=== PATIENT | female | born 1945 | race Asian ===

== ENCOUNTER 2017-04-14 13:33 | Emergency (ER) | payer MEDICARE ==
[2017-04-14] VITALS (8 sets, daily range): BP systolic 81–130; BP diastolic 55–72
[~2017-04-14] VITALS: Ht 162.6 cm; Wt 63.5 kg
[2017-04-14] MEDS ORDERED: Adenosine 6mg/2ml Inj ONE (13:37)
[2017-04-14] MEDS ORDERED: Solu-MEDROL 125mg Inj IVP ONE (13:45)
[2017-04-14] MEDS ORDERED: Adenosine 6mg/2ml Inj IVP ONE ×2 (13:45)
[2017-04-14] MEDS ORDERED: Famotidine 20 MG/ 2ML VIAL IVP ONE (13:45)
[2017-04-14 14:05] LABS: EOSINOPHILS % (AUTO) 0.7 % (0.0-3.0); LYMPHOCYTES % (AUTO) 44.9 % (20.0-45.0); MEAN CORPUSCULAR HEMOGLOBIN 31.5 PG (27.0-31.0); MEAN CORPUSCULAR HGB CONC 31.9 G/DL (32.0-36.0); MEAN CORPUSCULAR VOLUME 99 FL (80-99); MEAN PLATELET VOLUME 6.7 FL (6.5-10.1); MONOCYTES % (AUTO) 5.8 % (1.0-10.0); NEUTROPHILS % (AUTO) 47.7 % (45.0-75.0); PLATELET COUNT 315 K/UL (150-450); RED BLOOD COUNT 4.59 M/UL (4.20-5.40); RED CELL DISTRIBUTION WIDTH 12.2 % (11.6-14.8); WHITE BLOOD COUNT 12.2 K/UL (4.8-10.8)
--- NOTE | 2017-04-14 14:09 | Diagnostic Imaging Report ---
Indication: Dyspnea Comparison: None A single view chest radiograph was obtained. Findings: Calcified nodules noted in the right lung base. Cardiomegaly is present. Bones are osteopenic. Impression: No acute disease Old granulomatous disease Cardiomegaly Osteoporosis
[2017-04-14 14:21] LABS: ALANINE AMINOTRANSFERASE 15 U/L (3-33); ALBUMIN/GLOBULIN RATIO 1.7 (1.0-2.7); ANION GAP 16 (5-15); ASPARTATE AMINO TRANSFERASE 20 U/L (5-40); CALCIUM 9.5 mg/dL (8.6-10.2); CARBON DIOXIDE 25 mEQ/L (20-30); CHLORIDE 102 mEQ/L (98-107); CREATININE 0.9 mg/dL (0.5-0.9); GLOMERULAR FILTRATION RATE > 60 mL/min (>60); HEMOLYSIS 7; POTASSIUM 2.8 mEQ/L (3.4-4.9); SODIUM 143 mEQ/L (135-145); TOTAL PROTEIN 6.4 g/dL (6.6-8.7)
[2017-04-14 14:22] LABS: TROPONIN I < 0.30 ng/mL (<=0.30)
[2017-04-14 14:32] LABS: CKMB 3.4 ng/mL (< 3.8)
--- NOTE | 2017-04-14 15:28 | Emergency Room Report ---
History of Present Illness General Chief Complaint: Allergic Reaction Source: Patient Present Illness HPI 72-year-old female presents ED for evaluation. Per EMS patient was stung by a bee today on her hands. Patient sustained a allergic reaction. BP was low. patient had diffuse hives. patient denied SOB. patient was given benedryl, epinephrine. on arrival, BP is improved, but patient is tachycardic. denies chest pain, SOB. Denies fevers or chills. no known food or drug allergies. no other aggravating or relieving factors. denies any other associated symptoms Allergies: Coded Allergies: No Known Allergies (Unverified , 04/14/17) Patient History Past Medical History: none Past Surgical History: none Pertinent Family History: none Social History: Denies: alcohol use, drug use, smoking Now: No Immunizations: UTD Reviewed Nursing Documentation: PMH: Agreed, PSxH: Agreed Nursing Documentation-PMH Past Medical History: No Stated History Review of Systems All Other Systems: negative except mentioned in HPI Physical Exam Vital Signs Date Time Temp Pulse Resp B/P Pulse Ox O2 Delivery O2 Flow Rate FiO2 04/14/17 13:27 115 18 126/71 97 Room Air 04/14/17 13:33 98.0 Sp02 EP Interpretation: reviewed, normal General Appearance: no apparent distress, alert, GCS 15, non-toxic Head: normocephalic, atraumatic Eyes: bilateral eye PERRL, bilateral eye normal inspection ENT: hearing grossly normal, normal pharynx, no angioedema, normal voice Neck: full range of motion, supple/symm/no masses Respiratory: chest non-tender, lungs clear, normal breath sounds, speaking full sentences Cardiovascular #1: no edema, tachycardia Cardiovascular #2: 2+ carotid (R), 2+ carotid (L), 2+ radial (R), 2+ radial (L) , 2+ dorsalis pedis (R), 2+ dorsalis pedis (L) Gastrointestinal: normal bowel sounds, non tender, soft, non-distended, no guarding, no rebound Rectal: deferred Genitourinary: normal inspection, no CVA tenderness Musculoskeletal: back normal, gait/station normal, normal range of motion, non- tender Neurologic: alert, oriented x3, responsive, motor strength/tone normal, sensory intact, speech normal Psychiatric: judgement/insight normal, memory normal, mood/affect normal, no suicidal/homicidal ideation Reflexes: 3+ bicep (R), 3+ bicep (L), 3+ tricep (R), 3+ tricep (L), 3+ knee (R) , 3+ knee (L) Skin: normal color, warm/dry, well hydrated, other - hives Lymphatic: no adenopathy Procedures Critical Care Time Critical Care Time i. I feel this is a highly complex case requiring extensive working including EKG/Rhythm strip, Xray/CT/US, Blood/urine lab work, repeat exams while in ED, and administration of strong opiates/narcotics for pain control, admission to hospital or close patient follow up. Total time: 30 min bedside evaluation and treatment excludes procedures (EKG). Reason for critical care: SVT, anaphylaxis Possible complications: hypotension, hypertension, MT, shock, arrhythmias, metabolic acidosis, end organ damage, respiratory failure. Interventions: Labs, IV fluids, EKG, chest x-ray, pepcid, Solu-Medrol. Adenosine Course: Patient brought in for anaphylaxis after bee sting. Given epi and Benadryl in field. Upon arrival tachycardic to the 180s. EKG shows SVT. Given adenosine 6 mg then 12 mg with conversion. Troponins negative Consultations: nursing staff, EMS, family Performed by: Dr Rodriguez Tolerated well condition = serious j. because of unstable vital signs this patient had a condition that could potentially threaten life or limb. I feel this is a critical patient who required my full attention while patient was considered critical. Total Critical Care Time excluding procedures was greater than 35 minutes Medical Decision Making Diagnostic Impression: Primary Impression: SVT (supraventricular tachycardia) Additional Impressions: Anaphylaxis Qualified Codes: T78.2XXA - Anaphylactic shock, unspecified, initial encounter Allergic reaction Qualified Codes: T78.40XA - Allergy, unspecified, initial encounter Labs Test 04/14/17 13:47 White Blood Count 12.2 K/UL (4.8-10.8) Red Blood Count 4.59 M/UL (4.20-5.40) Hemoglobin 14.5 G/DL (12.0-16.0) Hematocrit 45.4 % (37.0-47.0) Mean Corpuscular Volume 99 FL (80-99) Mean Corpuscular Hemoglobin 31.5 PG (27.0-31.0) Mean Corpuscular Hemoglobin Concent 31.9 G/DL (32.0-36.0) Red Cell Distribution Width 12.2 % (11.6-14.8) Platelet Count 315 K/UL (150-450) Mean Platelet Volume 6.7 FL (6.5-10.1) Neutrophils (%) (Auto) 47.7 % (45.0-75.0) Lymphocytes (%) (Auto) 44.9 % (20.0-45.0) Monocytes (%) (Auto) 5.8 % (1.0-10.0) Eosinophils (%) (Auto) 0.7 % (0.0-3.0) Basophils (%) (Auto) 1.0 % (0.0-2.0) Sodium Level 143 mEQ/L (135-145) Potassium Level 2.8 mEQ/L (3.4-4.9) Chloride Level 102 mEQ/L (98-107) Carbon Dioxide Level 25 mEQ/L (20-30) Anion Gap 16 (5-15) Blood Urea Nitrogen 12 mg/dL (7-23) Creatinine 0.9 mg/dL (0.5-0.9) Estimat Glomerular Filtration Rate > 60 mL/min (>60) Glucose Level 188 mg/dL (74-106) Calcium Level 9.5 mg/dL (8.6-10.2) Total Bilirubin 0.3 mg/dL (0.0-1.2) Aspartate Amino Transf (AST/SGOT) 20 U/L (5-40) Alanine Aminotransferase (ALT/SGPT) 15 U/L (3-33) Alkaline Phosphatase 82 U/L (35-104) Total Creatine Kinase 110 U/L (26-140) Creatine Kinase MB 3.4 ng/mL (< 3.8) Creatine Kinase MB Relative Index 3.0 Troponin I < 0.30 ng/mL (<=0.30) Pro-B-Type Natriuretic Peptide 424 pg/mL (0-125) Total Protein 6.4 g/dL (6.6-8.7) Albumin 4.1 g/dL (3.5-5.2) Globulin 2.3 g/dL Albumin/Globulin Ratio 1.7 (1.0-2.7) EKG Diagnostic Results Rate: tachycardiac Rhythm: other - SVT ST Segments: no acute changes ASA given to the pt in ED: No Rhythm Strip Diag. Results EP Interpretation: yes Rhythm: no PVC's, no ectopy Chest X-Ray Diagnostic Results Chest X-Ray Diagnostic Results : Chest X-Ray Ordered: Yes # of Views/Limited/Complete: 1 View Indication: Shortness of Breath EP Interpretation: Yes Interpretation: no consolidation, no effusion, no pneumothorax, no acute cardiopulmonary disease Impression: No acute disease Interpreting ER Provider: Jan Rodriguez MD Last Vital Signs Date Time Temp Pulse Resp B/P Pulse Ox O2 Delivery O2 Flow Rate FiO2 04/14/17 15:18 98.3 106 20 103/57 98 Room Air Status: improved Disposition: ADMITTED INPATIENT Condition: Serious Referrals: NON PHYSICIAN (PCP) JAN RODRIGUEZ M.D. Apr 14, 2017 15:28
[2017-04-14] MEDS ORDERED: Morphine Sulfate 2mg/ml Inj IVP ONE (15:43)
[2017-04-14] MEDS ORDERED: NKM (16:42)
--- NOTE | 2017-04-19 16:32 | Cardiology Report ---
APPROVED REPORT EKG Measurement Heart [id number] Sinus rhythm with 1st degree AV block Possible Left atrial enlargement Incomplete right bundle branch block Nonspecific T wave abnormality Prolonged QT Abnormal ECG
== END 2017-04-14 19:09 | disposition left against medical advice (07) ==
LOC: EDBD 13:33 → EMR 13:55 → EDBEDREQ 14:42 → UNDOADMIN 17:47 → 2E 17:47
DX: T78.2XXA Anaphylactic shock, unspecified, initial encounter (principal); T63.441A Toxic effect of venom of bees, accidental (unintentional), initial encounter; T78.40XA Allergy, unspecified, initial encounter; I47.1 Supraventricular tachycardia; W57.XXXA Bitten or stung by nonvenomous insect and other nonvenomous arthropods, initial encounter; Y92.9 Unspecified place or not applicable
CPT/HCPCS: 36415; 71010; 80053; 82550; 82553; 83880; 84484; 85025; 93005; 99291; J0153; J2930; S0028; J8499

== ENCOUNTER 2020-03-27 21:09 | Emergency (ER) | payer MEDICARE, OTHER ==
[~2020-03-27] VITALS: Ht 157.5 cm; Wt 63.5 kg
[~2020-03-27 21:09] MED LIST: NKM
[2020-03-27 21:15] VITALS: BP 138/88
[2020-03-27 21:30] VITALS: BP 138/88
--- NOTE | 2020-03-27 21:33 | NUR ---
ED Nurse Note: Pt ambulated to ED from home c/o heart palpitations and weakness since 430pm, denies N/V. Pt is A&Ox4, HR 150, pt placed on quality assurance monitor, ERMD at bedside, daughter on the phone translating. EKG done
--- NOTE | 2020-03-27 21:39 | Emergency Room Report ---
History of Present Illness General Chief Complaint: Neck Pain Source: Patient Present Illness HPI Patient is a 75-year-old female who presents after increased palpitations. Prior history of panic attacks in the past. Had intermittent episodes with rapid heartbeats which previously had resolved without treatment. She had previously been seen by cardiology and had been told that she did not have any coronary disease. Patient apparently had not been having any fever. No shortness of breath. Normally these episodes would resolve spontaneously after a brief period of time. The seem to continue for several hours. Allergies: Coded Allergies: No Known Allergies (Unverified , 04/14/17) COVID-19 Screening Contact w/high risk pt: No Recent Travel to affected area: No Experienced COVID-19 symptoms?: No COVID-19 Testing performed CONTROLLER INSTRUCTOR: No Patient History Reviewed Nursing Documentation: PMH: Agreed; PSxH: Agreed Nursing Documentation-PMH Past Medical History: No Stated History Physical Exam Vital Signs Date Time Temp Pulse Resp B/P (MAP) Pulse Ox O2 Delivery O2 Flow Rate FiO2 03/27/20 21:12 98.1 82 16 138/88 (105) 97 Room Air Sp02 EP Interpretation: reviewed, normal General Appearance: normal inspection, well appearing, no apparent distress, alert, GCS 15, Chronically Ill Head: normocephalic, atraumatic ENT: normal ENT inspection, hearing grossly normal, normal voice Neck: normal inspection, full range of motion, supple, no bony tend Respiratory: normal inspection, lungs clear, normal breath sounds, no respiratory distress, no retraction, no wheezing Cardiovascular #1: no edema, tachycardia, other - Increased right-sided carotid pulse. Gastrointestinal: normal inspection, normal bowel sounds, non tender, soft, no guarding, no hernia Genitourinary: no CVA tenderness Musculoskeletal: normal inspection, back normal, normal range of motion Neurologic: alert, motor strength/tone normal, wind energy project manager III-XII nml as tested, oriented x3, responsive, speech normal, normal inspection Psychiatric: normal inspection, judgement/insight normal, mood/affect normal Skin: no rash, normal color Medical Decision Making Diagnostic Impression: Primary Impression: SVT (supraventricular tachycardia) Additional Impression: CHF (congestive heart failure) ER Course Patient presented for palpitations. Differential diagnosis includes not limited to pneumonia, coronavirus infection, myocardial infarction, arrhythmia, among others. Because of complexity of patient's case laboratory tests and imaging studies were ordered. EKG interpreted by me showed supraventricular tachycardia with no acute ST or T wave changes noted. Adenosine was ordered however patient converted spontaneously prior to medication administration. Patient denies any recent stimulant use or prior cardiac history. Patient reportedly had been having symptoms for several hours and has had multiple episodes in the past and is previously been seen by cardiology.Repeat EKG interpreted by me showed normal sinus rhythm with a rate of [address] or T wave changes noted.This x-ray showed mild cardiomegaly with multiple calcified granulomas and no focal consolidation or pneumothorax or pleural fluid collection. Laboratory testing showed negative troponin BNP was noted to be elevated consistent with possible new onset of CHF. Patient was advised of risk benefits and alternatives of leaving AGAINST MEDICAL ADVICE including but not limited to disability loss of current lifestyle heart attack and stroke. Patient indicated understanding and continues to want to leave the hospital. Patient was advised she could return at any time. She was given copies of her laboratory testing and advised to follow-up with medical service technician. She was given oral Lasix and advised that this may continue to make her urinate more than usual. Patient was advised to return if worse. Labs Test 03/27/20 22:00 White Blood Count 10.7 K/UL (4.8-10.8) Red Blood Count 4.83 M/UL (4.20-5.40) Hemoglobin 15.0 G/DL (12.0-16.0) Hematocrit 46.3 % (37.0-47.0) Mean Corpuscular Volume 96 FL (80-99) Mean Corpuscular Hemoglobin 31.1 PG (27.0-31.0) Mean Corpuscular Hemoglobin Concent 32.4 G/DL (32.0-36.0) Red Cell Distribution Width 12.5 % (11.6-14.8) Platelet Count 305 K/UL (150-450) Mean Platelet Volume 7.3 FL (6.5-10.1) Neutrophils (%) (Auto) 83.6 % (45.0-75.0) Lymphocytes (%) (Auto) 13.6 % (20.0-45.0) Monocytes (%) (Auto) 2.0 % (1.0-10.0) Eosinophils (%) (Auto) 0.3 % (0.0-3.0) Basophils (%) (Auto) 0.5 % (0.0-2.0) EKG Diagnostic Results Rate: tachycardiac Rhythm: other - Supraventricular ST Segments: no acute changes ASA given to the pt in ED: Yes Rhythm Strip Diag. Results EP Interpretation: yes Rhythm: no PVC's, no ectopy, other - Supraventricular tachycardia rate of 150 Last Vital Signs Date Time Temp Pulse Resp B/P (MAP) Pulse Ox O2 Delivery O2 Flow Rate FiO2 03/27/20 21:12 98.1 82 16 138/88 (105) 97 Room Air Status: unchanged Disposition: AGAINST MEDICAL ADVICE Condition: Stable Jw Cunningham MD Mar 27, 2020 21:39
[2020-03-27] MEDS: Adenosine 6mg/2ml Inj IVP ONE ×2 (21:44→21:45)
[2020-03-27] MEDS ORDERED: Aspirin Baby 81mg ORAL ONE (21:45)
[2020-03-27 22:11] LABS: BASOPHILS % (AUTO) 0.5 % (0.0-2.0); EOSINOPHILS % (AUTO) 0.3 % (0.0-3.0); HEMATOCRIT 46.3 % (37.0-47.0); LYMPHOCYTES % (AUTO) 13.6 % (20.0-45.0); MEAN CORPUSCULAR VOLUME 96 FL (80-99); NEUTROPHILS % (AUTO) 83.6 % (45.0-75.0); PLATELET COUNT 305 K/UL (150-450); RED BLOOD COUNT 4.83 M/UL (4.20-5.40); RED CELL DISTRIBUTION WIDTH 12.5 % (11.6-14.8); WHITE BLOOD COUNT 10.7 K/UL (4.8-10.8)
[2020-03-27 22:24] LABS: ANION GAP 11 mmol/L (5-15); BLOOD UREA NITROGEN 16 mg/dL (7-18); CALCIUM 9.5 MG/DL (8.5-10.1); CARBON DIOXIDE 28 MMOL/L (21-32); CHLORIDE 98 MMOL/L (98-107); CREATININE 1.1 MG/DL (0.55-1.30); POTASSIUM 3.4 MMOL/L (3.5-5.1); SODIUM 137 MMOL/L (136-145)
--- NOTE | 2020-03-27 22:28 | Diagnostic Imaging Report ---
EXAM: XR Chest, 1 View CLINICAL HISTORY: PE TECHNIQUE: Frontal view of the chest. COMPARISON: No prior studies made available for comparison. FINDINGS: Mild cardiac enlargement. Multiple calcified granulomas. Negative for focal parenchymal consolidation, pneumothorax or pleural fluid collections.
[2020-03-27 22:36] LABS: ALANINE AMINOTRANSFERASE 26 U/L (12-78); ALBUMIN 4.4 G/DL (3.4-5.0); ALKALINE PHOSPHATASE 109 U/L (46-116); ASPARTATE AMINO TRANSFERASE 28 U/L (15-37); BILIRUBIN,TOTAL 0.6 MG/DL (0.2-1.0)
[2020-03-27 23:00] VITALS: BP 138/88
--- NOTE | 2020-03-27 23:00 | NUR ---
AMA: SEE AMA FORM.
== END 2020-03-27 23:00 | disposition left against medical advice (07) ==
LOC: EMR 22:16
DX: I47.1 Supraventricular tachycardia (principal); I50.9 Heart failure, unspecified; Z53.29 Procedure and treatment not carried out because of patient's decision for other reasons
CPT/HCPCS: 36415; 71045; 80053; 83690; 83880; 84443; 84484; 85025; 85379; 86140; 93005; 99284; J0153; J8499